=== PATIENT | male | born 1950 | race Caucasian/White ===

== ENCOUNTER → 2017-09-27 | Outpatient (CLI) | payer BC, MEDICARE | LOC: M SLEEP 19:42 | DX: G47.30 Sleep apnea, unspecified (principal) | CPT/HCPCS: 95810 ==

== ENCOUNTER → 2018-04-15 | Outpatient (CLI) | payer BC, MEDICARE ==
[~2018-04-15] MED LIST: AMIO0.1T PO; CETI10CH PO; LEVO25TA5 PO; LISI-542 PO; METO1TAB32 PO; VICO5TAB16 PO; XARE20TA PO; ZYLO300T6 PO
--- NOTE | 2018-04-15 17:59 | REP ---
Clinical: Trauma. Technique: AP, lateral, bilateral oblique and sunrise views of the right knee. Findings: Lateral view demonstrates significant soft tissue swelling and small effusion. No acute fracture or dislocation. Moderate tricompartmental osteoarthritic degenerative changes are appreciated. Impression: Anterior swelling. No obvious acute fracture or dislocation. Moderate tricompartmental osteoarthritic degenerative changes. Electronically Signed by Matt Quintana MD 04/15/2018 05:51 P
== END ==
LOC: M WUC 17:34
PROVIDERS: ATTEND Physician Assistant
DX: S80.01XA Contusion of right knee, initial encounter (principal); M79.89 Other specified soft tissue disorders; M17.11 Unilateral primary osteoarthritis, right knee

== ENCOUNTER 2018-04-19 10:59 | Emergency (ER) | payer BC, MEDICARE ==
[~2018-04-19] VITALS: Ht 193 cm; Wt 95.5 kg
[2018-04-19] MEDS ORDERED: AMIO0.1T PO (11:29)
[2018-04-19] MEDS ORDERED: ZYLO300T6 PO (11:29)
[2018-04-19] MEDS ORDERED: CETI10CH PO (11:29)
[2018-04-19] MEDS ORDERED: METO1TAB32 PO (11:29)
[2018-04-19] MEDS ORDERED: XARE20TA PO (11:29)
[2018-04-19] MEDS ORDERED: LEVO25TA5 PO (11:29)
[2018-04-19] MEDS ORDERED: LISI-542 PO (11:29)
[2018-04-19 11:56] LABS: HEMATOCRIT 37.4 % (42.0-52.0); HEMOGLOBIN 12.1 g/dl (13.5-17.5); MEAN CORPUSCULAR HEMOGLOBIN 30.6 pg (27.0-33.0); MEAN CORPUSCULAR HGB CONC 32.4 g/dl (32.0-36.5); MEAN CORPUSCULAR VOLUME 94.4 fl (80.0-96.0); PLATELET COUNT, AUTOMATED 302 10^3/uL (150-450); RED BLOOD COUNT 3.96 10^6/uL (4.30-6.10); WHITE BLOOD COUNT 11.9 10^3/uL (4.0-10.0)
[2018-04-19] MEDS ORDERED: MORPHINE 4 MG/ML 1ML VIAL/SYRINGE (J2270) IV ONE ×2 (12:00→13:30)
[2018-04-19] MEDS ORDERED: METOCLOPRAMIDE INJ 10MG/2ML VIAL (J2765) IV ONE (12:15)
[2018-04-19 12:25] LABS: BLOOD UREA NITROGEN 17 MG/DL (7-18); C REACTIVE PROTEIN QUANTITATIV 0.66 MG/DL (0.00-0.30); CALCIUM LEVEL 8.6 MG/DL (8.8-10.2); CARBON DIOXIDE LEVEL 31 MEQ/L (21-32); CHLORIDE LEVEL 107 MEQ/L (98-107); CREATININE FOR GFR 0.89 MG/DL (0.70-1.30); GLOMERULAR FILTRATION RATE > 60.0 (>49); GLUCOSE, FASTING 92 MG/DL (70-100); POTASSIUM SERUM 4.5 MEQ/L (3.5-5.1); SODIUM LEVEL 141 MEQ/L (136-145)
--- NOTE | 2018-04-19 12:43 | REP ---
Right lower extremity Duplex Doppler venous ultrasound: Real time compression and duplex Doppler interrogation of the right lower extremity deep venous system is performed. The right common femoral, superficial femoral and popliteal veins are fully compressible with transducer pressure and demonstrate normal spontaneous and phasic flow, without evidence of deep venous thrombosis. Impression: No evidence of deep venous thrombosis of the right lower extremity femoral popliteal venous system. There is a hypoechoic oval fluid collection in the medial knee soft tissues measuring 5.5 x 2.5 x 6.4 cm. Electronically Signed by Bud Arreola MD 04/19/2018 12:34 P
[2018-04-19 12:49] VITALS: BP 153/74
--- NOTE | 2018-04-19 12:59 | REP ---
Clinical: Pain and swelling. Technique: AP, lateral, bilateral oblique and sunrise views of the right knee. Findings: Marked diffuse soft tissue swelling and possible effusion noted. Age-related osteopenia and generalized degenerative changes noted. No acute fracture or dislocation identified. Impression: Marked swelling and possible effusion. No acute fracture. Electronically Signed by Matt Quintana MD 04/19/2018 12:50 P
[2018-04-19] MEDS ORDERED: LIDOCAINE 1% MDV 20ML VIAL IM ONE (14:00)
[2018-04-19] MEDS ORDERED: VICO5TAB16 PO (14:37)
--- NOTE | 2018-04-19 16:52 | RO ---
DATE OF PROCEDURE: 04/19/2018 PREOPERATIVE DIAGNOSIS: Hematoma right knee. POSTOPERATIVE DIAGNOSIS: Hematoma right knee. PROCEDURE: Attempted aspiration of right knee hematoma. SURGEON: Dr. Shukri Jimenez ANESTHESIA: Local. COMPLICATIONS: None. FINDINGS: He had a hematoma that was basically unaspirable and the subdermal tissues of the prepatellar bursa of that right knee. PROCEDURE: After appropriate time out the medial aspect of his knee was sterilely prepped with Betadine and 1% Lidocaine was infiltrated in the skin. Then I used both an 18-gauge needle and also a 14-gauge angiocath to penetrate into the area of maximal tenderness and swelling and was only able to aspirate a few mL of coagulating purple blood. No purulence was noted or other fluid. The procedure at this point was abandoned because we did not obtain any other fluids. The wound was covered with a sterile gauze. IMPRESSION: Hematoma in the prepatellar bursa and medial soft tissues of the knee. PLAN: Warm moist soaks, activity modification, elevation and rest over the weekend and call our office on Sunday for followup appointment care if his symptoms do not gradually resolve on their own independently or if he develops any signs of infection or other troubles.
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
== END 2018-04-19 14:52 | disposition home or self-care (01) ==
LOC: M ED 10:59
DX: S80.01XA Contusion of right knee, initial encounter (principal); M79.89 Other specified soft tissue disorders; W00.0XXA Fall on same level due to ice and snow, initial encounter; Y92.89 Other specified places as the place of occurrence of the external cause; I48.91 Unspecified atrial fibrillation; E03.9 Hypothyroidism, unspecified; I10 Essential (primary) hypertension; M10.9 Gout, unspecified; Z79.899 Other long term (current) drug therapy; Z79.01 Long term (current) use of anticoagulants; Z87.442 Personal history of urinary calculi
CPT/HCPCS: 10160; 73564; 80048; 85027; 86140; 87040; 93971; 96374; 96375; 96376; 99285; J2270; J2765

== ENCOUNTER → 2018-04-22 | Outpatient (REF) | payer MEDICARE ==
[2018-04-22 14:17] LABS: SOURCE, BODY FLUID RT KNEE
[2018-04-22 14:18] LABS: SYNOVIAL FLUID COLOR AMBER (YELLOW)
[2018-04-22 14:30] LABS: MUCIN CLOT TEST NO CLOT (4+)
[2018-04-22 14:31] LABS: BODY FLUID RHEUMATOID SCREEN NEGATIVE (NEGATIVE)
[2018-04-22 14:38] LABS: CRYSTALS, BODY FLUID NONE SEEN (NONE SEEN); SOURCE, BODY FLUID CRYSTALS RT KNEE
[2018-04-22 14:50] LABS: SOURCE, BODY FLUID URIC ACID RT KNEE; URIC ACID, BODY FLUID 5.2 MG/DL (NOT ESTABLISHED)
[2018-04-22 15:07] LABS: SOURCE, BODY FLUID GLUCOSE RT KNEE
== END ==
LOC: M LAB REF 13:16
PROVIDERS: ATTEND Physician Assistant
DX: S80.01XA Contusion of right knee, initial encounter (principal)

== ENCOUNTER → 2018-09-11 | Outpatient (CLI) | payer MEDICARE ==
[~2018-09-11] MED LIST changes: -VICO5TAB16 PO; +VICO5TAB17 PO
[2018-09-11 16:58] LABS: ALBUMIN 3.8 GM/DL (3.2-5.2); ALT/SGPT 24 U/L (12-78); AMYLASE 49 U/L (25-115); BILIRUBIN,TOTAL 0.4 MG/DL (0.2-1.0); BLOOD UREA NITROGEN 14 MG/DL (7-18); CALCIUM LEVEL 9.3 MG/DL (8.8-10.2); CARBON DIOXIDE LEVEL 26 MEQ/L (21-32); CHLORIDE LEVEL 108 MEQ/L (98-107); CREATININE FOR GFR 0.92 MG/DL (0.70-1.30); GLOMERULAR FILTRATION RATE > 60.0 (>49); GLUCOSE, FASTING 88 MG/DL (70-100); LIPASE 101 U/L (73-393); POTASSIUM SERUM 4.8 MEQ/L (3.5-5.1); SODIUM LEVEL 141 MEQ/L (136-145); TOTAL PROTEIN 7.9 GM/DL (6.4-8.2)
[2018-09-11 17:09] LABS: BASO # 0.1 10^3/uL (0.0-0.2); BASO % 0.8 % (0.0-1.0); EOS # 0.2 10^3/uL (0.0-0.50); EOS % 2.7 % (0.0-3.0); HEMATOCRIT 42.6 % (42.0-52.0); HEMOGLOBIN 13.8 g/dl (13.5-17.5); LYMPH # 3.2 10^3/uL (1.5-4.5); LYMPH % 36.1 % (24.0-44.0); MEAN CORPUSCULAR HEMOGLOBIN 31.2 pg (27.0-33.0); MEAN CORPUSCULAR HGB CONC 32.4 g/dl (32.0-36.5); MEAN CORPUSCULAR VOLUME 96.2 fl (80.0-96.0); MONO # 0.8 10^3/uL (0.0-0.8); MONO % 8.9 % (0.0-5.0); NEUTROPHILS # 4.6 10^3/uL (1.8-7.7); NEUTROPHILS % 51.4 % (36.0-66.0); PLATELET COUNT, AUTOMATED 317 10^3/uL (150-450); RED BLOOD COUNT 4.43 10^6/uL (4.30-6.10)
--- NOTE | 2018-09-12 09:41 | REP ---
Clinical: Abdominal pain. Technique: Two supine views of the abdomen and pelvis. Findings: Moderate fecal stasis and possible constipation. No bowel obstruction. No definite evidence for perforation. No organomegaly. No abnormal calcifications. Skeletal structures demonstrate age-related degenerative changes. Impression: Moderate fecal stasis and possible constipation. Electronically Signed by Matt Quintana MD 09/11/2018 02:11 P
== END ==
LOC: M WUC 13:37
PROVIDERS: ATTEND Physician Assistant
DX: K59.00 Constipation, unspecified (principal)

== ENCOUNTER → 2019-02-03 | Outpatient (CLI) | payer MEDICARE ==
--- NOTE | 2019-02-03 10:12 | REP ---
SI joint series: Five views. History: Pain. The patient reports right-sided sciatic pain. Findings: AP and oblique views of the SI joints bilaterally shows no evidence of ankylosis or erosive change. No sclerosis is seen. No sacral or iliac lesion is appreciated. Hips are unremarkable. Impression: Negative views of the SI joints. Electronically Signed by Sandeep Rodriguez MD 02/03/2019 10:03 A
== END ==
LOC: M WUC 09:41
PROVIDERS: ATTEND Physician Assistant
DX: M25.551 Pain in right hip (principal); M54.5 Low back pain

== ENCOUNTER 2019-04-30 07:24 | Emergency (ER) | payer MEDICARE ==
[~2019-04-30] VITALS: Ht 193 cm; Wt 101.6 kg
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
[2019-04-30 10:12] VITALS: BP 152/74
== END 2019-04-30 10:13 | disposition home or self-care (01) ==
LOC: M ED 07:24
DX: S46.812A Strain of other muscles, fascia and tendons at shoulder and upper arm level, left arm, initial encounter (principal); X58.XXXA Exposure to other specified factors, initial encounter; Y92.89 Other specified places as the place of occurrence of the external cause; M19.012 Primary osteoarthritis, left shoulder; I48.91 Unspecified atrial fibrillation; I10 Essential (primary) hypertension; M10.9 Gout, unspecified; E07.9 Disorder of thyroid, unspecified; Z87.442 Personal history of urinary calculi; Z87.828 Personal history of other (healed) physical injury and trauma; Z79.899 Other long term (current) drug therapy; Z79.01 Long term (current) use of anticoagulants

== ENCOUNTER 2019-10-25 10:00 | Emergency (ER) | payer MEDICARE ==
[2019-10-25] MEDS ORDERED: SOTALOL HCL 80 MG TAB ONE (10:01)
[2019-10-25] MEDS ORDERED: GI COCKTAIL 50ML BTL(HYOSCYAMINE/MAALOX/LIDOCAINE VISCOUS)(1:3:1) ONE (11:07)
[2019-10-25] MEDS ORDERED: KETOROLAC 30 MG/ML 1ML VIAL ONE (11:07)
[2019-10-25] MEDS ORDERED: GI COCKTAIL 50ML BTL(HYOSCYAMINE/MAALOX/LIDOCAINE VISCOUS)(1:3:1) As Ordered ONE (11:07)
[2019-10-25] MEDS ORDERED: KETOROLAC 30 MG/ML 1ML VIAL As Ordered ONE (11:07)
[2019-10-25] MEDS ORDERED: ISOVUE-370 76% 100ML VIAL As Ordered ONE (11:25)
[2019-10-25] MEDS ORDERED: MORPHINE 2 MG/ML 1ML VIAL (J2270) As Ordered ONE (13:41)
[2019-10-25] MEDS ORDERED: COLCHICINE 0.6 MG TAB ONE (13:41)
[2019-10-25] MEDS ORDERED: MORPHINE 2 MG/ML 1ML VIAL (J2270) ONE (13:41)
[2019-10-25] MEDS ORDERED: COLCHICINE 0.6 MG TAB As Ordered ONE (14:19)
--- NOTE | 2019-12-01 15:15 | ECGEPIP ---
[facility] - ED Test Date: 2019-10-25 Pat Name: CARLOS A DUNAWAY Department: Room: - Gender: Male [employer] News: : 1950 Requested By: WAI Pedro Order Number: [id number] Reading MD: Rohini Good Measurements Intervals [place] Rate: 115 P: DE: 0 QRS: 29 QRSD: 78 T: 27 QT: 345 QTc: 478 Interpretive Statements ATRIAL FIBRILLATION WITH RAPID VENTRICULAR RESPONSE WITH ABERRANT CONDUCTION OR VENTRICULAR PREMATURE COMPLEXES NONSPECIFIC ST & T-WAVE ABNORMALITY ABNORMAL RHYTHM ECG SEE SCANNED DOWNTIME REPORT
--- NOTE | 2019-12-04 10:53 | ECGEPIP ---
ATRIAL FIBRILLATION WITH RAPID VENTRICULAR RESPONSE ST ELEVATION CLINICAL CORRELATE TO EXCLUED ISCHEMIA SEE SCANNED DOWNTIME REPORT MTDD
[2019-12-11 11:28] LABS: INR 1.51; PARTIAL THROMBOPLASTIN TIME 32.9 SECONDS (24.2-38.5); PROTHROMBIN TIME 18.5 SECONDS (12.5-14.3)
[2019-12-11 17:17] LABS: HEMATOCRIT 41.4 % (42.0-52.0); HEMOGLOBIN 13.1 g/dl (13.5-17.5); MEAN CORPUSCULAR HEMOGLOBIN 29.4 pg (27.0-33.0); MEAN CORPUSCULAR HGB CONC 31.6 g/dl (32.0-36.5); PLATELET COUNT, AUTOMATED 296 10^3/uL (150-450); RED BLOOD COUNT 4.45 10^6/uL (4.30-6.10); WHITE BLOOD COUNT 14.4 10^3/uL (4.0-10.0)
[2019-12-11 18:05] LABS: ERYTHROCYTE SEDIMENTATION RATE 27 mm/hr (0-20)
[2020-01-13 18:16] LABS: ALBUMIN 3.5 GM/DL (3.2-5.2); ALT/SGPT 19 U/L (12-78); BILIRUBIN,TOTAL 0.5 MG/DL (0.2-1.0); BLOOD UREA NITROGEN 14 MG/DL (7-18); C REACTIVE PROTEIN QUANTITATIV 0.98 MG/DL (0.00-0.30); CALCIUM LEVEL 9.4 MG/DL (8.8-10.2); CARBON DIOXIDE LEVEL 28 MEQ/L (21-32); CHLORIDE LEVEL 107 MEQ/L (98-107); CREATININE FOR GFR 0.72 MG/DL (0.70-1.30); GLOMERULAR FILTRATION RATE > 60.0 (>49); GLUCOSE, FASTING 122 MG/DL (70-100); POTASSIUM SERUM 4.6 MEQ/L (3.5-5.1); SODIUM LEVEL 140 MEQ/L (136-145); THYROID STIMULATING HORMONE < 0.005 uIU/ML (0.358-3.740); TOTAL PROTEIN 7.6 GM/DL (6.4-8.2)
== END 2019-10-25 16:50 | disposition home or self-care (01) ==
LOC: M ED 10:00
DX: I97.89 Other postprocedural complications and disorders of the circulatory system, not elsewhere classified (principal); I30.9 Acute pericarditis, unspecified; I48.91 Unspecified atrial fibrillation; E11.9 Type 2 diabetes mellitus without complications; I10 Essential (primary) hypertension; Z79.899 Other long term (current) drug therapy; Z79.811 Long term (current) use of aromatase inhibitors
CPT/HCPCS: 71046; 71275; 80053; 84443; 85027; 85610; 85652; 85730; 86140; 93005; 96374; 96375; 96376; 99284; J1885; J2270; Q9967

== ENCOUNTER → 2021-06-23 | Outpatient (CLI) | payer MEDICARE ==
[~2021-06-23] MED LIST changes: +ALLO10TA PO; +ALLO300T2 PO; +AMIO200T37; +CYAN500T14 PO; +DILT180C28 PO; +FLOM0.4C39 PO; -LISI-542 PO; +LISI5TAB11 PO; +LOSA50TA28 PO; +OMEP1CAP73 PO; +SOTA120T31 PO; +TAMS1CAP17
== END ==
LOC: M LABSMTC 10:50
PROVIDERS: ATTEND Anesthesiology
DX: Z01.818 Encounter for other preprocedural examination (principal); Z11.52 Encounter for screening for COVID-19

== ENCOUNTER → 2021-08-03 | Outpatient (CLI) | payer MEDICARE ==
[~2021-08-03] MED LIST changes: +ERLE60TA PO; +LUPR22.5 IM
== END ==
LOC: M LABSMTC 09:04
PROVIDERS: ATTEND Anesthesiology
DX: Z01.818 Encounter for other preprocedural examination (principal); Z11.52 Encounter for screening for COVID-19

== ENCOUNTER 2021-08-08 07:47 | Day surgery (SDC) | payer MEDICARE ==
[~2021-08-08] VITALS: Ht 193 cm; Wt 116.0 kg
[~2021-08-08 07:47] MED LIST changes: +LIDOCAINE 1% SDV 5ML VIAL As Ordered ONE; +OFLOXACIN 0.3 % (OCUFLOX) OPTH SOL 5ML OS SCH; +PHENYLEPHRINE 2.5% OPHTH SOL 2ML OS SCH; +PROPARACAINE 0.5% OPHTH SOL 15ML OS ONE; +TROPICAMIDE 1% OPHTH SOLN 2ML OS SCH
[2021-08-08] MEDS ORDERED: INSULIN LISPRO (NovoLOG) PER UNIT SC PRN (08:10)
[2021-08-08] MEDS ORDERED: MIDAZOLAM INJ 2MG/2ML VIAL (J2250 PER 1MG) As Ordered ONE (09:04)
[2021-08-08] MEDS ORDERED: fentaNYL 100 MCG/2 ML INJECTION As Ordered ONE (09:04)
[2021-08-08 10:45] VITALS: BP 131/72
== END 2021-08-08 10:50 | disposition home or self-care (01) ==
LOC: M SDC 07:47
PROVIDERS: ATTEND Ophthalmology
DX: H25.12 Age-related nuclear cataract, left eye (principal); I10 Essential (primary) hypertension; M10.9 Gout, unspecified; K21.9 Gastro-esophageal reflux disease without esophagitis; C61 Malignant neoplasm of prostate; Z92.21 Personal history of antineoplastic chemotherapy; Z87.891 Personal history of nicotine dependence; E03.9 Hypothyroidism, unspecified; Z79.01 Long term (current) use of anticoagulants; Z79.899 Other long term (current) drug therapy
CPT/HCPCS: 66984; J2250; J3010; V2787

== ENCOUNTER → 2022-08-04 | Outpatient (CLI) | payer MEDICARE ==
[~2022-08-04] MED LIST changes: -LIDOCAINE 1% SDV 5ML VIAL As Ordered ONE; -OFLOXACIN 0.3 % (OCUFLOX) OPTH SOL 5ML OS SCH; -PHENYLEPHRINE 2.5% OPHTH SOL 2ML OS SCH; -PROPARACAINE 0.5% OPHTH SOL 15ML OS ONE; -TROPICAMIDE 1% OPHTH SOLN 2ML OS SCH
== END ==
LOC: M SLEEP 20:00
PROVIDERS: ATTEND Nurse Practitioner Family
DX: G47.33 Obstructive sleep apnea (adult) (pediatric) (principal)

== ENCOUNTER → 2022-09-07 | Outpatient (CLI) | payer MEDICARE, BC | LOC: M SLEEP 20:00 | PROVIDERS: ATTEND Nurse Practitioner Family | DX: G47.33 Obstructive sleep apnea (adult) (pediatric) (principal) ==